=== PATIENT | female | born 1960 ===

== ENCOUNTER 2021-03-30 06:33 | Outpatient (CLI) | payer OTHER ==
[2021-03-30 07:14] LABS: Basophils % (Auto) 0.8 % (0.0-1.8); Eosinophils # (Auto) 0.1 K/mm3 (0.0-0.4); Eosinophils % (Auto) 2.1 % (0.0-4.3); Hematocrit 36.4 % (30.3-42.9); Hemoglobin 12.6 gm/dl (10.1-14.3); Lymphocytes # (Auto) 1.8 K/mm3 (1.2-5.4); Lymphocytes % (Auto) 34.9 % (13.4-35.0); Mean Corpuscular HGB Conc 35 % (30-34); Mean Corpuscular Volume 85 fl (79-97); Monocytes # (Auto) 0.4 K/mm3 (0.0-0.8); Monocytes % (Auto) 8.4 % (0.0-7.3); Platelet Count 242 K/mm3 (140-440); Red Blood Count 4.28 M/mm3 (3.65-5.03); Red Cell Distribution Width 13.5 % (13.2-15.2)
[2021-03-30 07:23] LABS: Creatinine,Urine 43.9 mg/dL (0.1-20.0)
[2021-03-30 07:40] LABS: Microalbumin/Creatinine Ratio 27.3 ug/mg
[2021-03-30 07:42] LABS: Alanine Aminotransferase 33 units/L (7-56); Albumin 4.2 g/dL (3.9-5); Blood Urea Nitrogen 15 mg/dL (7-17); Calcium 9.6 mg/dL (8.4-10.2); HDL Cholesterol 47 mg/dL (40-59); Hemolysis Index 4; LDL Cholesterol,Direct 66 mg/dL (50-130)
[2021-03-30 08:04] LABS: BUN/Creatinine Ratio 25
[2021-04-02 13:00] LABS: Vitamin D, 25-OH, D2 <4 ng/mL
== END 2021-03-30 06:34 | disposition home or self-care (01) ==
LOC: LAB 06:33
PROVIDERS: ATTEND Internal Medicine
DX: Z13.29 Encounter for screening for other suspected endocrine disorder (principal); Z00.00 Encounter for general adult medical examination without abnormal findings; E11.65 Type 2 diabetes mellitus with hyperglycemia; E78.5 Hyperlipidemia, unspecified; E55.9 Vitamin D deficiency, unspecified
CPT/HCPCS: 36415; 80053; 80061; 82043; 82306; 83036; 84443; 85025

== ENCOUNTER 2021-06-29 06:11 | Outpatient (CLI) | payer OTHER ==
[2021-06-29 06:53] LABS: Chol/HDL Ratio 2.27 %
== END 2021-06-29 06:12 | disposition home or self-care (01) ==
LOC: LAB 06:11
PROVIDERS: ATTEND Internal Medicine
DX: E11.65 Type 2 diabetes mellitus with hyperglycemia (principal); E78.5 Hyperlipidemia, unspecified
CPT/HCPCS: 36415; 80061; 83036

== ENCOUNTER 2022-03-22 10:39 | Outpatient (CLI) | payer OTHER ==
[2022-03-22 12:43] LABS: Chol/HDL Ratio 2.58 %
== END 2022-03-22 10:40 | disposition home or self-care (01) ==
LOC: LABHHL 10:39
PROVIDERS: ATTEND Internal Medicine
DX: E11.65 Type 2 diabetes mellitus with hyperglycemia (principal); E78.5 Hyperlipidemia, unspecified
CPT/HCPCS: 36415; 80061; 83036